=== PATIENT | female | born 1980 | race African-American/Black ===

== ENCOUNTER 2021-07-10 13:10 | Emergency (ER) | payer MEDICAID, MEDICARE ==
[~2021-07-10] VITALS: Ht 157.5 cm; Wt 80.0 kg
[2021-07-10 13:20] VITALS: BP 147/77
[2021-07-10] MEDS ORDERED: LIDOCAINE HCL/EPINEPHRINE 1%-EPI 1:100,000 20 ML VIAL INFIL ONE (13:30)
[2021-07-10] MEDS ORDERED: TETANUS, DIPHTHERIA, PERTUSSIS VAC/PF 0.5ML (>10YR OLD) IM ONE (13:30)
[2021-07-10] MEDS ORDERED: BACITRACIN ZINC OINT UDPKT TOP ONE (13:30)
[2021-07-10] MEDS ORDERED: ACETAMINOPHEN 325MG TABLET PO ONE (13:45)
[2021-07-10] MEDS ORDERED: TOPUD MT (15:44)
== END 2021-07-10 15:57 | disposition home or self-care (01) ==
LOC: ER 13:54
DX: S51.812A Laceration without foreign body of left forearm, initial encounter (principal); W26.8XXA Contact with other sharp object(s), not elsewhere classified, initial encounter; Y93.89 Activity, other specified; Y92.89 Other specified places as the place of occurrence of the external cause; Y99.8 Other external cause status
CPT/HCPCS: 12002; 73090; 90471; 90715; 99283; J3490